=== PATIENT | female | born 1945 ===

== ENCOUNTER → 2018-10-15 | Outpatient (CLI) | payer MEDICARE, OTHER ==
[~2018-10-15] MED LIST: HYDACE5 PO; IBUP800 PO; PROM25 PO
== END | disposition home or self-care (01) ==
LOC: LAB SHORT 11:36 → PLD 11:36
DX: D48.5 Neoplasm of uncertain behavior of skin (principal)
CPT/HCPCS: 88305

== ENCOUNTER 2019-09-02 08:24 | Day surgery (SDC) | payer MEDICARE, OTHER ==
[~2019-09-02] VITALS: Ht 162.6 cm; Wt 65.3 kg
== END 2019-09-02 11:20 | disposition home or self-care (01) ==
LOC: ORSCSDS 08:24
DX: K21.9 Gastro-esophageal reflux disease without esophagitis (principal); Z86.010 Personal history of colon polyps; Z80.0 Family history of malignant neoplasm of digestive organs; D12.3 Benign neoplasm of transverse colon; D12.4 Benign neoplasm of descending colon; D12.5 Benign neoplasm of sigmoid colon; K22.2 Esophageal obstruction; K44.9 Diaphragmatic hernia without obstruction or gangrene; K57.30 Diverticulosis of large intestine without perforation or abscess without bleeding; K64.4 Residual hemorrhoidal skin tags; I10 Essential (primary) hypertension; Z87.891 Personal history of nicotine dependence
CPT/HCPCS: 88305; J2704; J7120

== ENCOUNTER → 2022-04-22 | Outpatient (CLI) | payer MEDICARE, OTHER | LOC: LAB SHORT 12:41 → LAB 12:41 | DX: L03.119 Cellulitis of unspecified part of limb (principal) | CPT/HCPCS: 87070; 87075; 87077; 87205 ==